=== PATIENT | female | born 1975 | race Native Hawaiian/Other Pacific Islander ===

== ENCOUNTER 2017-02-05 12:41 | Outpatient (CLI) | payer BC ==
[~2017-02-05 12:41] MED LIST: B-122500 MC1 SL; RANI150T78 PO
== END 2017-02-05 19:03 | disposition home or self-care (01) ==
LOC: MAMMO 12:41
DX: N63 Unspecified lump in breast (principal); N64.4 Mastodynia

== ENCOUNTER 2017-04-16 07:39 | Day surgery (SDC) | payer BC ==
[~2017-04-16] VITALS: Ht 30.5 cm; Wt 0.5 kg
== END 2017-04-16 11:20 | disposition home or self-care (01) ==
LOC: OR 07:39
PROC: 0DJD8ZZ Inspection of Lower Intestinal Tract, Via Natural or Artificial Opening Endoscopic (ICD-10-PCS; principal; 2017-04-16)
DX: Z12.11 Encounter for screening for malignant neoplasm of colon (principal); Z86.010 Personal history of colon polyps; Z80.0 Family history of malignant neoplasm of digestive organs
CPT/HCPCS: J2001; J2405; J2704; J2765; J3010; S0028

== ENCOUNTER 2017-04-30 08:00 | Day surgery (SDC) | payer BC ==
[~2017-04-30] VITALS: Ht 30.5 cm; Wt 0.5 kg
[2017-04-30 09:01] LABS: PLATELET COUNT 232 K/uL (152-353)
== END 2017-04-30 10:56 | disposition home or self-care (01) ==
LOC: OR 08:00
PROVIDERS: Student in an Organized Health Care Education/Training Program
PROC: 0DB48ZZ Excision of Esophagogastric Junction, Via Natural or Artificial Opening Endoscopic (ICD-10-PCS; principal; 2017-04-30)
PROC: 0DB68ZZ Excision of Stomach, Via Natural or Artificial Opening Endoscopic (ICD-10-PCS; 2017-04-30)
DX: K29.70 Gastritis, unspecified, without bleeding (principal); K44.9 Diaphragmatic hernia without obstruction or gangrene; R19.00 Intra-abdominal and pelvic swelling, mass and lump, unspecified site; Z98.84 Bariatric surgery status; K21.0 Gastro-esophageal reflux disease with esophagitis
CPT/HCPCS: 85027; J2001; J2250; J2405; J2704; J2765; J3490; S0028

== ENCOUNTER 2018-07-23 10:44 | Emergency (ER) | payer BC ==
[~2018-07-23] VITALS: Ht 160 cm; Wt 99.3 kg
[2018-07-23 10:52] VITALS: TEMP 98.9
[2018-07-23] MEDS ORDERED: LEVO0.0218 PO (11:27)
[2018-07-23] MEDS ORDERED: BUPR150T PO (11:28)
[2018-07-23] MEDS ORDERED: VITAMIN D PO (11:29)
[2018-07-23 12:15] VITALS: BP 110/76
== END 2018-07-23 12:15 | disposition home or self-care (01) ==
LOC: ED 10:44
DX: S16.1XXA Strain of muscle, fascia and tendon at neck level, initial encounter (principal); S39.012A Strain of muscle, fascia and tendon of lower back, initial encounter; V49.9XXA Car occupant (driver) (passenger) injured in unspecified traffic accident, initial encounter
CPT/HCPCS: 99283; J1885

== ENCOUNTER 2018-08-14 15:50 | Outpatient (CLI) | payer BC, OTHER ==
[~2018-08-14 15:50] MED LIST changes: +BUPR150T PO; +LEVO0.0218 PO; +VITAMIN D PO
== END 2018-08-14 20:23 | disposition home or self-care (01) ==
LOC: RAD 15:50
DX: M25.552 Pain in left hip (principal)

== ENCOUNTER 2019-02-19 11:57 | Observation (INO) | payer BC ==
[~2019-02-19] VITALS: Ht 160 cm; Wt 110.8 kg
[2019-02-19 13:12] LABS: POTASSIUM 3.4 mmol/L (3.6-5.2); SODIUM 139 mmol/L (136-145)
[2019-02-19 13:33] LABS: PLATELET COUNT 409 K/uL (152-353)
[2019-02-19 13:41] VITALS: BP 106/65; TEMP 98.4; Ht 160 cm; Wt 110.8 kg
[2019-02-19 16:09] VITALS: BP 109/68; TEMP 98.3
[2019-02-19 20:00] VITALS: BP 122/74; TEMP 97.6
[2019-02-20] VITALS: BP 104/53; TEMP 97.8
[2019-02-20 04:00] VITALS: BP 101/52; TEMP 97.5
[2019-02-20 08:00] VITALS: BP 110/45; TEMP 98
[2019-02-20 11:18] LABS: PLATELET COUNT 283 K/uL (152-353)
[2019-02-20 11:32] LABS: POTASSIUM 4.4 mmol/L (3.6-5.2)
[2019-02-20 12:00] VITALS: BP 106/61; TEMP 97.9
[2019-02-20 16:00] VITALS: BP 116/61; TEMP 98
== END 2019-02-20 18:35 | disposition home or self-care (01) ==
LOC: MED/SURG 11:57
PROVIDERS: ADMIT Family Medicine
DX: E86.0 Dehydration (principal); D50.8 Other iron deficiency anemias; R06.02 Shortness of breath; E03.8 Other specified hypothyroidism
CPT/HCPCS: 36415; 80053; 81000; 82550; 83605; 83735; 84100; 84443; 84484; 85027; 87040; 87077; 87086; 87088; 87186; 96360; 96361; 96367; 99220; G0378; G0379; J0696; J2916; J3475

== ENCOUNTER 2019-02-23 09:04 | Outpatient (CLI) | payer BC ==
[~2019-02-23] VITALS: Ht 160 cm; Wt 108.9 kg
[2019-02-23 09:15] VITALS: BP 110/50; TEMP 98.6
== END 2019-02-23 10:18 | disposition home or self-care (01) ==
LOC: INF 09:04
DX: D50.9 Iron deficiency anemia, unspecified (principal); R53.83 Other fatigue
CPT/HCPCS: 96365; J1439

== ENCOUNTER 2019-03-03 08:41 | Outpatient (CLI) | payer BC ==
[~2019-03-03] VITALS: Ht 160 cm; Wt 109.8 kg
[2019-03-03 09:05] VITALS: BP 123/62; TEMP 98.1
== END 2019-03-03 10:15 | disposition home or self-care (01) ==
LOC: INF 08:41
DX: D50.9 Iron deficiency anemia, unspecified (principal); R53.83 Other fatigue
CPT/HCPCS: 96365; J1439

== ENCOUNTER 2019-03-30 15:31 | Outpatient (CLI) | payer BC | END 2019-03-30 20:18 | disposition home or self-care (01) | LOC: RAD 15:31 | DX: M54.5 Low back pain (principal) ==

== ENCOUNTER 2019-04-22 09:34 | Outpatient (CLI) | payer BC | END 2019-04-22 20:10 | disposition home or self-care (01) | LOC: MRI 09:34 | DX: R41.3 Other amnesia (principal) ==

== ENCOUNTER 2019-11-06 08:10 | Outpatient (CLI) | payer BC ==
[~2019-11-06] VITALS: Ht 160 cm; Wt 108.9 kg
== END 2019-11-06 09:09 | disposition home or self-care (01) ==
LOC: INF 08:10 → EDSTATUS 11-09 08:59
DX: D50.9 Iron deficiency anemia, unspecified (principal)
CPT/HCPCS: 96365; J1439

== ENCOUNTER 2019-11-20 07:56 | Outpatient (CLI) | payer BC ==
[~2019-11-20] VITALS: Ht 160 cm; Wt 108.9 kg
== END 2019-11-20 09:18 | disposition home or self-care (01) ==
LOC: INF 07:56
DX: D50.9 Iron deficiency anemia, unspecified (principal); R53.83 Other fatigue
CPT/HCPCS: 96365; J1439

== ENCOUNTER 2020-02-19 13:06 | Outpatient (CLI) | payer BC | END 2020-02-19 23:31 | disposition home or self-care (01) | LOC: RESP 13:06 | DX: R00.2 Palpitations (principal); M25.552 Pain in left hip ==

== ENCOUNTER 2020-02-26 07:50 | Outpatient (CLI) | payer BC ==
[~2020-02-26] VITALS: Ht 160 cm; Wt 123.4 kg
== END 2020-02-26 23:17 | disposition home or self-care (01) ==
LOC: NM 07:50
DX: R00.2 Palpitations (principal)
CPT/HCPCS: A9500; J2785

== ENCOUNTER 2020-03-05 10:24 | Outpatient (CLI) | payer BC | END 2020-03-05 23:22 | disposition home or self-care (01) | LOC: RAD 10:24 | DX: M54.16 Radiculopathy, lumbar region (principal); M25.551 Pain in right hip ==

== ENCOUNTER 2020-03-09 10:39 | Outpatient (CLI) | payer BC | END 2020-03-09 22:57 | disposition home or self-care (01) | LOC: US 10:39 | DX: N85.2 Hypertrophy of uterus (principal) ==

== ENCOUNTER 2020-03-24 08:50 | Outpatient (CLI) | payer BC | END 2020-03-24 19:01 | disposition home or self-care (01) | LOC: MRI 08:50 | DX: M25.551 Pain in right hip (principal); M54.16 Radiculopathy, lumbar region ==

== ENCOUNTER 2020-04-14 08:03 | Outpatient (CLI) | payer BC | END 2020-04-14 20:53 | disposition home or self-care (01) | LOC: US 08:03 | PROVIDERS: ATTEND Nurse Practitioner Family | DX: N83.201 Unspecified ovarian cyst, right side (principal) ==

== ENCOUNTER 2021-03-28 12:14 | Outpatient (CLI) | payer OTHER ==
[2021-03-28 12:44] LABS: PLATELET COUNT 265 K/uL (152-353)
[2021-03-28 13:28] LABS: POTASSIUM 3.5 mmol/L (3.6-5.2); SODIUM 140 mmol/L (136-145)
== END 2021-03-28 20:06 | disposition home or self-care (01) ==
LOC: RAD 12:14
PROVIDERS: ATTEND Nurse Practitioner Family
DX: U09.9 Post COVID-19 condition, unspecified (principal)
CPT/HCPCS: 36415; 80053; 82550; 82553; 83880; 84484; 85027; 85379

== ENCOUNTER 2021-11-17 11:08 | Outpatient (CLI) | payer OTHER | END 2021-11-17 21:11 | disposition home or self-care (01) | LOC: US 11:08 | PROVIDERS: ATTEND Nurse Practitioner Family | DX: R22.9 Localized swelling, mass and lump, unspecified (principal) ==

== ENCOUNTER 2021-11-28 09:20 | Outpatient (CLI) | payer OTHER | END 2021-11-28 20:36 | disposition home or self-care (01) | LOC: CT 09:20 | PROVIDERS: ATTEND Nurse Practitioner Family | DX: R59.0 Localized enlarged lymph nodes (principal) | CPT/HCPCS: Q9963 ==

== ENCOUNTER 2022-02-02 09:00 | Outpatient (CLI) | payer OTHER ==
[~2022-02-02] VITALS: Ht 160 cm; Wt 101.6 kg
[2022-02-02 09:06] VITALS: BP 113/71; TEMP 98.2
[2022-02-02 11:40] VITALS: BP 125/70; TEMP 97.8
== END 2022-02-02 21:48 | disposition home or self-care (01) ==
LOC: INF 09:00
PROVIDERS: ATTEND Family Medicine
DX: D50.9 Iron deficiency anemia, unspecified (principal)
CPT/HCPCS: 96365; 96366; J1756

== ENCOUNTER 2022-06-22 08:26 | Outpatient (CLI) | payer OTHER ==
[~2022-06-22] VITALS: Ht 160 cm; Wt 131.5 kg
[2022-06-22 08:33] VITALS: BP 127/76; TEMP 98.3
[2022-06-22 10:04] VITALS: BP 112/77; TEMP 98.1
== END 2022-06-22 19:12 | disposition home or self-care (01) ==
LOC: INF 08:26
PROVIDERS: ATTEND Family Medicine
DX: D50.9 Iron deficiency anemia, unspecified (principal)
CPT/HCPCS: 96365; Q0138

== ENCOUNTER 2022-06-29 08:45 | Outpatient (CLI) | payer OTHER ==
[~2022-06-29] VITALS: Ht 160 cm; Wt 131.5 kg
[2022-06-29 08:49] VITALS: BP 140/75; TEMP 98
[2022-06-29 09:44] VITALS: BP 127/67; TEMP 98.5
== END 2022-06-29 19:20 | disposition home or self-care (01) ==
LOC: INF 08:45
PROVIDERS: ATTEND Family Medicine
DX: D50.9 Iron deficiency anemia, unspecified (principal)
CPT/HCPCS: 96365; Q0138

== ENCOUNTER 2023-02-18 12:48 | Outpatient (CLI) | payer OTHER ==
[2023-02-18 13:38] LABS: POTASSIUM 4.2 mmol/L (3.6-5.2)
== END 2023-02-18 21:26 | disposition home or self-care (01) ==
LOC: LABW 12:48
PROVIDERS: ATTEND Nurse Practitioner Family
DX: R10.11 Right upper quadrant pain (principal)
CPT/HCPCS: 36415; 80053; 82150; 83690

== ENCOUNTER 2023-03-11 12:21 | Outpatient (CLI) | payer OTHER | END 2023-03-11 19:18 | disposition home or self-care (01) | LOC: MRI 12:21 | PROVIDERS: ATTEND Nurse Practitioner Family | DX: R10.11 Right upper quadrant pain (principal) | CPT/HCPCS: A9576 ==